=== PATIENT | male | born 1990 | race Caucasian/White ===

== ENCOUNTER → 2021-10-31 13:43 | Outpatient (CLI) | payer BC, SELFPAY ==
--- NOTE | ~2021-10-31 | US_ITS ---
EXAMINATION: US scrotum doppler DATE: 10/31/2021 14:09 INDICATION: Left testicular lump. TECHNIQUE: Grayscale and Doppler ultrasound images of the testes were obtained. COMPARISON: None. FINDINGS: The right testis measures 4.5 x 2.3 x 2.7 cm. The left testis measures 4.5 x 2.1 x 3.1 cm. There is normal vascular flow to both testes. The right epididymis is normal with normal vascular len w. The left epididymis demonstrates a 3.4 cm cyst with septation. There is no varicocele or hydrocele . IMPRESSION: 1. 3.4 cm cyst in left epididymis. Reviewed, dictated and finalized at location A.
== END ==
PROVIDERS: PCP Family Medicine; Visit Provider Family Medicine
DX: N50.3 Cyst of epididymis (principal)
CPT/HCPCS: 76870; 93976

== ENCOUNTER 2022-05-09 08:57 | Emergency (ER) | payer BC, SELFPAY ==
[2022-05-09 09:05] VITALS: BP 123/79; PULSE 60; RESP 16; TEMP 36.4; O2SAT 100
--- NOTE | 2022-05-09 09:09 | ED.URI ---
HPI - URI/Sore Throat General Chief Complaint: Upper Respiratory Infection Stated Complaint: sore throat Time Seen by Provider: 05/09/22 09:10 Source: patient and RN notes reviewed History of Present Illness HPI Narrative: Patient is a 31-year-old male who presents to urgent care with complaints of a sore throat that started 2 days ago and worse last night. Patient states that for a week he has had sinus drainage and on off congestion. Patient has been using cough drops but otherwise no medication [id number] for his symptoms. Denies any fever, nausea, vomiting or ill exposures. No other acute complaints. No acute distress noted. Patient aware of the of care. Some parts of this dictation were generated by voice recognition software and may contain typographical and/or grammatical inaccuracies. Related Data Home Medications Medication Instructions Recorded Confirmed No Home Medications 10/27/21 10/27/21 Allergies Allergy/AdvReac Type Severity Reaction Status Date / Time peanut Allergy Swelling Verified 05/09/22 09:13 tree nut Allergy Swelling Verified 05/09/22 09:13 fish Allergy Vomiting Uncoded 10/27/21 10:24 Review of Systems Review of Systems: CONSTITUTIONAL: Denies fever, chills, or sweats. EYES: Denies visual changes, redness, or discharge. ENT: Reports of sinus congestion, drainage and sore throat CARDIOVASCULAR: Denies chest pain, palpitations, or edema. RESPIRATORY: Denies cough or dyspnea. GASTROINTESTINAL: Denies abdominal pain, nausea, vomiting, or diarrhea. GENITOURINARY: Denies dysuria or hematuria. SKIN: Denies rash or itching. MUSCULOSKELETAL: Denies back pain, joint pain, or myalgia. NEUROLOGIC: Denies headache, numbness, or weakness. All other systems reviewed are negative, except as documented in HPI. PMFSH Family History Family History Father Hypertension Heart disease Cerebrovascular accident Mother Multiple sclerosis Grandparent Leukemia Social History Social History Smoking status: Never smoker Comments At the time of my signature, I reviewed and agree with the nursing past medical, surgical, social, and family history. There is no relevant family history pertinent to the patient complaint. Exam Narrative: GENERAL: This is a well-nourished, well-developed patient, in no apparent distress. HEAD: normocephalic, atraumatic. EYES: PERRL. Sclera clear/white. Vision is grossly intact. EARS: External ears normal, auditory canals clear and without drainage, unable to visualize bilateral TMs due to cerumen impaction. Hearing grossly intact. NOSE: External nose normal with no obvious nasal discharge, nares without redness, no rhinorrhea. THROAT: Mucous membranes moist, mild erythema to posterior pharynx without exudate or ulceration. Mild postnasal drainage. NECK: Neck supple, non-tender without lymphadenopathy RESPIRATORY: Clear to auscultation. Breath sounds equal bilaterally. No wheezes, rales, or rhonchi. SKIN: warm, intact with no suspicious lesions or rash, good texture and turgor. NEURO: awake, alert, and oriented to person, place and time. There were no obvious focal neurologic abnormalities. EXTREMITIES: No clubbing, cyanosis, or edema. Course Course Level of Care: Express Care Visit Vital Signs Vital signs: Vital Signs Temperature 97.5 F L 05/09/22 09:05 Pulse Rate 60 05/09/22 09:05 Respiratory Rate 16 05/09/22 09:05 Blood Pressure 123/79 05/09/22 09:05 Pulse Oximetry 100 05/09/22 09:05 Oxygen Delivery Room Air 05/09/22 09:05 Temperature 97.5 F L 05/09/22 09:05 Pulse Rate 60 05/09/22 09:05 Respiratory Rate 16 05/09/22 09:05 Blood Pressure 123/79 05/09/22 09:05 Pulse Oximetry 100 05/09/22 09:05 Oxygen Delivery Room Air 05/09/22 09:05 Reviewed MDM - URI/Sore Throat MDM Narrative Medical decision making narr
== END 2022-05-09 09:28 | disposition home or self-care (01) ==
PROVIDERS: Emergency Provider Nurse Practitioner Family; PCP Family Medicine
DX: J02.9 Acute pharyngitis, unspecified (principal)
CPT/HCPCS: 87081; 87880; 99213; G0463

== ENCOUNTER 2023-04-08 13:46 | Outpatient (CLI) | payer BC, SELFPAY | END 2023-04-08 13:47 | disposition home or self-care (01) | LOC: ANHAUDASC 13:47 | PROVIDERS: PCP Family Medicine; Visit Provider Otolaryngology | DX: H93.12 Tinnitus, left ear (principal); H90.42 Sensorineural hearing loss, unilateral, left ear, with unrestricted hearing on the contralateral side | CPT/HCPCS: 92557; 92567 ==